=== PATIENT | female | born 1975 | race African-American/Black ===

== ENCOUNTER 2020-01-28 13:47 | Emergency (ER) | payer MEDICAID ==
[~2020-01-28] VITALS: Ht 165.1 cm; Wt 100.0 kg
[2020-01-28 17:54] VITALS: BP 129/71
== END 2020-01-28 18:55 | disposition home or self-care (01) ==
LOC: ER 13:47
DX: L03.116 Cellulitis of left lower limb (principal)
CPT/HCPCS: 93971; 99284

== ENCOUNTER 2023-08-20 22:14 | Emergency (ER) | payer SELFPAY ==
[~2023-08-20] VITALS: Ht 165.1 cm; Wt 120.0 kg
[2023-08-20 22:40] VITALS: O2SAT 97
[2023-08-21] MEDS ORDERED: ACET-2708 MT (05:17)
[2023-08-21] MEDS ORDERED: METR45CR2 TP (05:17)
[2023-08-21 05:39] VITALS: BP 152/90; PULSE 72; RESP 19; TEMP 98.3
[2023-08-23 09:09] LABS: CHLAMYDIA TRACHOMATIS NAA Negative (Negative); NEISSERIA GONORRHOEAE NAA Negative (Negative)
== END 2023-08-21 05:58 | disposition home or self-care (01) ==
LOC: ER 22:25
DX: R59.1 Generalized enlarged lymph nodes (principal); N93.9 Abnormal uterine and vaginal bleeding, unspecified; J45.909 Unspecified asthma, uncomplicated; Z98.51 Tubal ligation status; Z98.890 Other specified postprocedural states
CPT/HCPCS: 87210; 87491; 87591; 99284